=== PATIENT | male | born 1975 | race Two or more races ===

== ENCOUNTER 2017-09-30 08:43 | Day surgery (SDC) | payer BC ==
[~2017-09-30] VITALS: Ht 180.3 cm; Wt 62.1 kg
[2017-09-30] VITALS (7 sets, daily range): BP systolic 113–131; BP diastolic 68–76
--- NOTE | 2017-09-30 06:52 | Anethesia Preoperative Eval ---
Anesthesia Pre-op PMH/ROS General Date of Evaluation: Sep 30, 2017 Time of Evaluation: 06:52 Anesthesiologist: lesli ASA Score: ASA 2 Mallampati Score Class I : Soft palate, uvula, fauces, pillars visible Class II: Soft palate, uvula, fauces visible Class III: Soft palate, base of uvula visible Class IV: Only hard plate visible Mallampati Classification: Class II Surgeon: raffaele Diagnosis: rectal bleeding Surgical Procedure: colonoscopy Anesthesia History: none Social History: current smoker Family History: no anesthesia problems Allergies: Coded Allergies: No Known Allergies (Unverified , 09/27/17) Medications: see eMAR Anesthesia Pre-op Phys. Exam Physician Exam Last Vital Signs Date Time Temp Pulse Resp B/P (MAP) Pulse Ox O2 Delivery O2 Flow Rate FiO2 09/30/17 09:12 98.3 62 18 131/72 100 Room Air 98.3 Constitutional: NAD Neurologic: CN 2-12 intact Cardiovascular: RRR Respiratory: CTA Gastrointestinal: S/NT/ND Airway Exam Mallampati Score: Class II MO: full Neck: supple TMD: 2fb ROM: full Teeth: intact Anesthesia Pre-op A/P Risk Assessment & Plan Assessment: asa2 Plan: mac Status Change Before Surgery: No Pre-Antibiotics Drug: GEREMIAS Leung Sep 30, 2017 06:52
[2017-09-30] MEDS ORDERED: PROPECIA1 MG PO (09:11)
--- NOTE | 2017-09-30 09:24 | Pre-Procedure Note/Attestation ---
Pre-Procedure Note/Attestation Complete Prior to Procedure Planned Procedure: not applicable Procedure Narrative: colonoscopy Indications for Procedure Pre-Operative Diagnosis: rectal bleed Attestation I attest that I discussed the nature of the procedure; its benefits; risks and complications; and alternatives (and the risks and benefits of such alternatives ), prior to the procedure, with the patient (or the patient's legal guest services representative). I attest that, if there was a reasonable possibility of needing a blood transfusion, the patient (or the patient's legal guest services representative) was given the [facility] standardized written summary, pursuant to the Buster Nelida Blood Safety Act ([place] Health and Safety Code # 1645, as amended). I attest that I re-evaluated the patient just prior to the surgery and that there has been no change in the patient's H&P, except as documented below: ANGLE BUCK Sep 30, 2017 09:24
--- NOTE | 2017-09-30 09:26 | Short Stay Surgery H&P ---
History of Present Illness History of Present Illness Chief Complaint rectal bleed DELFINO Tinoco is a 41 year old male who was admitted on for Rectal Bleeding Patient History Allergies: Coded Allergies: No Known Allergies (Unverified , 09/27/17) PAST MEDICAL HISTORY: Past Surgeries: Social History: Medication History Scheduled Finasteride (Propecia), 1 MG PO DAILY, (Reported) Review of Systems Cardiovascular: Reports: no symptoms Respiratory: Reports: no symptoms Skeletal: Reports: no symptoms Gastrointestinal: Reports: no symptoms Genitourinary: Reports: no symptoms Neurologic: Reports: no symptoms Endocrine: Reports: no symptoms Hematologic: Reports: no symptoms Physical Exam Vital Signs Last Vital Signs Date Time Temp Pulse Resp B/P (MAP) Pulse Ox O2 Delivery O2 Flow Rate FiO2 09/30/17 09:12 98.3 62 18 131/72 100 Room Air 98.3 Skin: normal HENT: normal Heart: normal Lungs: normal Abdomen: normal Extremities: normal Plan Plan of Care colonoscopy Final Diagnosis: Attestation Are the patient's medical conditions optimized for surgery? Attestation Response: yes ANGLE BUCK Sep 30, 2017 09:26
[2017-09-30] MEDS ORDERED: Atropine Inj 1mg/10ml Syr IV PRN (09:45)
[2017-09-30] MEDS ORDERED: fentaNYL 100 mcg/2 mL IV PRN (09:45)
[2017-09-30] MEDS ORDERED: Midazolam 2mg/2ml Inj IVP PRN (09:45)
[2017-09-30] MEDS ORDERED: DiphenhydrAMINE 50mg/ml Inj IVP PRN (09:45)
--- NOTE | 2017-09-30 10:00 | Endoscopy Procedure Note ---
Endoscopy Procedure Note General Indication for Procedure: rectal bleed Procedures Performed: colonoscopy Operative Findings/Diagnosis: hemorrhoids Specimen: none Pt Tolerated Procedure Well: Yes Estimated Blood Loss: none Anesthesia Anesthesiologist: joelle Anesthesia: MAC Inserted Devices Implant(s) used?: No Quality Quality of Bowel Preparation: Excellent Did scope reach the cecum?: Yes Was there any complications?: No GI Core Measures 50 yrs or older w/o bx or poly: Yes 10yrs. F/U not recommended: Yes If not recommended, why?: Above average risk 10 yrs. F/U needed: Yes 18 years or older w/prev. colo: No ANGLE BUCK Sep 30, 2017 10:00
--- NOTE | 2017-09-30 10:23 | Immediate Post-Op Evaluation ---
Immediate Post-Op Evalulation Immediate Post-Op Evalulation Procedure: colonoscopy Date of Evaluation: Sep 30, 2017 Time of Evaluation: 10:18 IV Fluids: 400ml Blood Products: none Estimated Blood Loss: negligible Blood Pressure Systolic: 116 Blood Pressure Diastolic: 68 Pulse Rate: 53 Respiratory Rate: 18 O2 Sat by Pulse Oximetry: 100 Temperature (Fahrenheit): 97.1 Pain Score (1-10): 0 Nausea: No Vomiting: No Complications none Patient Status: awake, reacts, patent Hydration Status: adequate Drug: GEREMIAS Leung Sep 30, 2017 10:23
--- NOTE | 2017-09-30 10:25 | 48 Hour Post Anesthesia Eval ---
Post Anesthesia Evaluation Procedure: colonoscopy Date of Evaluation: Sep 30, 2017 Time of Evaluation: 10:20 Blood Pressure Systolic: 118 0: 66 Pulse Rate: 55 Respiratory Rate: 18 Temperature (Fahrenheit): 97.1 O2 Sat by Pulse Oximetry: 100 Airway: other Nausea: No Vomiting: No Pain Intensity: 0 Hydration Status: adequate Cardiopulmonary Status: stable Mental Status/LOC: patient returned to baseline Post-Anesthesia Complications: none Follow-up care needed: N/A GEREMIAS ALMODOVAR Sep 30, 2017 10:25
--- NOTE | 2017-09-30 15:15 | Procedure Note ---
DATE OF PROCEDURE: 09/30/2017 SURGEON: Regulo Caruso M.D. PROCEDURE: Colonoscopy. ANESTHESIA: Per Dr. Buck. INSTRUMENT: Olympus adult flexible colonoscope. INDICATION: Rectal bleeding. The procedure, risks, benefits, and possible consequences, including hemorrhage, aspiration, perforation and infection, and alternative treatments, were explained to the patient/legal guardian by Dr. Regulo Caruso and the patient/legal guardian understood and accepted these risks. PROCEDURE IN DETAIL: After informed consent was obtained and the patient was adequately sedated, first rectal exam was performed, which was positive for internal hemorrhoids. Then, the scope was advanced from the rectum into the cecum documented by appendiceal orifice, ileocecal valve, and right upper quadrant palpation. The quality of prep was very good. The patient had normal colonoscopic examination. No obvious mass, polyp, or any other pathology seen. Retroflexion of rectum showed evidence of internal hemorrhoids. SUMMARY OF FINDINGS: Internal hemorrhoid, most probably cause of source of bleeding. RECOMMENDATIONS: 1. Treat for hemorrhoids. 2. Follow up in the clinic. Regulo Caruso M.D. DR: KAMI JOB#: [id number] CC:
== END 2017-09-30 11:20 | disposition home or self-care (01) ==
LOC: GAS 08:43
DX: K64.8 Other hemorrhoids (principal); F17.200 Nicotine dependence, unspecified, uncomplicated
CPT/HCPCS: 94003; 94150